=== PATIENT | female | born 1990 | race African-American/Black ===

== ENCOUNTER 2016-11-03 09:16 | Emergency (ER) | payer MEDICAID ==
[~2016-11-03] VITALS: Ht 160 cm; Wt 63.6 kg
[~2016-11-03 09:16] MED LIST: AMOXICILLIN 50500 MG PO; AMOXICILLIN 8751 TAB PO; AMOXICILLIN875 MG PO; CEFTIN 250250 MG/TAB PO; CLEOCIN HCL300 MG PO; DICLEGIS PO; FLEXERIL 1010 MG/TAB PO; MACROBID 1100 MG/CAP PO; MOTRIN 600600 MG/TAB PO; NATURAL IRON65 MG; NORCO 325 MG-51 TAB PO; NORCO 325 MG-7.1 TAB PO; ORAL PAIN REL9.35 GM MM; PEN-VEE K500 MG PO; PHENERGAN 25 TA25 MG PO; PHENERGAN12.5 MG/SU RC; PRENATAL; SLOW FE45 MG PO; ULTRAM 50MG TAB50 MG PO; ZOFRAN 4MG T4 MG/TAB PO
[2016-11-03 09:18] VITALS: BP 106/61; PULSE 96; TEMP 98.8
== END 2016-11-03 10:03 | disposition home or self-care (01) ==
LOC: COL.ER 09:16
DX: S00.83XA Contusion of other part of head, initial encounter (principal); S01.411A Laceration without foreign body of right cheek and temporomandibular area, initial encounter; W01.198A Fall on same level from slipping, tripping and stumbling with subsequent striking against other object, initial encounter; Y92.009 Unspecified place in unspecified non-institutional (private) residence as the place of occurrence of the external cause

== ENCOUNTER 2017-03-25 07:59 | Inpatient (IN) | payer MEDICAID ==
[2017-03-25] VITALS (16 sets, daily range): BP systolic 114–166; BP diastolic 77–101; PULSE 63–90; TEMP 97.6–98.2
[~2017-03-25] VITALS: Ht 157.5 cm; Wt 75.0 kg
[2017-03-25 09:20] LABS: BASO % 0.2 % (0.0-2.0); EOS % 0.3 % (0-4.0); GRAN % 79.6 % (42.2-75.2); LYMPH # 1.6 (1.2-3.4); MEAN CELL VOLUME 81 fl (80.0-100.0); MEAN CORPUSCULAR HGB CONC 32 g/dl (33.0-37.0); MEAN PLATELET VOLUME 12.8 fl (7.4-10.4); MONO # 0.6 (0.1-0.6); MONO % 5.5 % (1.7-9.3); PLATELET COUNT 224 K/mm3 (130-400); RED BLOOD COUNT 4.54 M/mm3 (4.10-5.30); REDCELL DISTRIBUTION WIDTH-CV 13.2 % (11.5-14.5); WHITE BLOOD COUNT 11.3 K/mm3 (4.8-10.8)
[2017-03-25 09:23] LABS: HEMATOCRIT 36.7 % (37.0-47.0); HEMOGLOBIN 11.6 g/dl (12.5-16.0); MEAN CORPUSCULAR HEMOGLOBIN 26 pg (27.0-31.0)
[2017-03-25 09:33] LABS: AMPHETAMINE URINE NEGATIVE; BARBITURATES URINE NEGATIVE; BENZODIAZEPINES URINE NEGATIVE; BUPRENORPHINE URINE NEGATIVE; METHADONE URINE NEGATIVE; OPIATES URINE NEGATIVE; OXYCODONE URINE NEGATIVE; PHENCYCLIDINE URINE NEGATIVE; PROPOXYPHENE URINE NEGATIVE; THC CANNABINOIDS URINE POSITIVE
[2017-03-25 10:22] LABS: UMBILICAL ARTERY ABG PCO2 58.7 mmHg (30-65); UMBILICAL VEIN ABG HCO3 23.2 meq/L (22-28); UMBILICAL VEIN ABG PCO2 45.6 mmHg (30-65); UMBILICAL VEIN ABG PO2 17.8 mmHg; UMBILICAL VEIN ABG pH 7.33 (7.25-7.35)
[2017-03-25 10:27] LABS: UMBILICAL ARTERY ABG pH 7.27 (7.28-7.45)
[2017-03-25 10:28] LABS: UMBILICAL ARTERY ABG PO2 < 10.0 mmHg (50-75)
[2017-03-26 07:15] VITALS: BP 136/90; PULSE 75; TEMP 98.1
[2017-03-26] MEDS ORDERED: IBU800 M1 PO (11:20)
[2017-03-26] MEDS ORDERED: PERCOCET 325 MG1 TA2 PO (11:22)
== END 2017-03-26 13:54 | disposition home or self-care (01) | DRG 774 ==
LOC: LDRO 07:59 → LDR 08:17 → OB 12:53 → LDRO 05-16 14:44
PROVIDERS: Obstetrics & Gynecology
PROC: 10E0XZZ Delivery of Products of Conception, External Approach (ICD-10-PCS; principal; 2017-03-25)
DX: O45.93 Premature separation of placenta, unspecified, third trimester (principal); O99.323 Drug use complicating pregnancy, third trimester; F12.90 Cannabis use, unspecified, uncomplicated; Z3A.38 38 weeks gestation of pregnancy; Z37.0 Single live birth
CPT/HCPCS: J2590; J7120

== ENCOUNTER 2017-10-20 10:58 | Emergency (ER) | payer MEDICAID ==
[~2017-10-20] VITALS: Ht 157.5 cm; Wt 65.9 kg
[~2017-10-20 10:58] MED LIST changes: +IBU800 M1 PO; +PERCOCET 325 MG1 TA2 PO
[2017-10-20 11:00] VITALS: BP 119/77
[2017-10-20 12:15] VITALS: PULSE 99; TEMP 97.7
== END 2017-10-20 12:09 | disposition home or self-care (01) ==
LOC: COL.ER 10:58
DX: S02.2XXA Fracture of nasal bones, initial encounter for closed fracture (principal); F17.210 Nicotine dependence, cigarettes, uncomplicated; Z86.2 Personal history of diseases of the blood and blood-forming organs and certain disorders involving the immune mechanism; Z98.818 Other dental procedure status; W20.8XXA Other cause of strike by thrown, projected or falling object, initial encounter; Y92.009 Unspecified place in unspecified non-institutional (private) residence as the place of occurrence of the external cause

== ENCOUNTER 2017-10-25 12:18 | Emergency (ER) | payer MEDICAID ==
[~2017-10-25] VITALS: Ht 157.5 cm; Wt 65.9 kg
[2017-10-25 12:20] VITALS: BP 123/84; PULSE 90; TEMP 99.1
[2017-10-26] MEDS ORDERED: NORCO 325 MG-51 TAB PO (13:01)
== END 2017-10-25 14:20 | disposition left against medical advice (07) ==
LOC: COL.ER 12:18
DX: J34.89 Other specified disorders of nose and nasal sinuses (principal); Z53.21 Procedure and treatment not carried out due to patient leaving prior to being seen by health care provider

== ENCOUNTER 2017-10-26 10:20 | Emergency (ER) | payer MEDICAID ==
[~2017-10-26] VITALS: Ht 160 cm; Wt 65.9 kg
[2017-10-26 10:30] VITALS: BP 115/66; PULSE 88; TEMP 98.7
[2017-10-26] MEDS ORDERED: NORCO 325 MG-51 TAB PO (13:01)
== END 2017-10-26 13:06 | disposition home or self-care (01) ==
LOC: COL.ER 10:20
DX: S02.2XXD Fracture of nasal bones, subsequent encounter for fracture with routine healing (principal)

== ENCOUNTER 2017-12-02 11:24 | Emergency (ER) | payer MEDICAID ==
[~2017-12-02] VITALS: Ht 160 cm; Wt 65.9 kg
[2017-12-02 11:26] VITALS: BP 120/80; PULSE 93; TEMP 98.2
[2017-12-02] MEDS ORDERED: NORCO 325 MG-51 TAB PO (11:56)
[2017-12-02] MEDS ORDERED: BACTRIM DS 8001 TAB PO (11:56)
== END 2017-12-02 12:02 | disposition home or self-care (01) ==
LOC: COL.ER 11:24
DX: L03.011 Cellulitis of right finger (principal); Z87.891 Personal history of nicotine dependence

== ENCOUNTER 2018-02-21 13:22 | Emergency (ER) | payer MEDICAID ==
[~2018-02-21] VITALS: Ht 160 cm; Wt 65.9 kg
[~2018-02-21 13:22] MED LIST changes: +BACTRIM DS 8001 TAB PO
[2018-02-21 13:24] VITALS: BP 116/55; TEMP 99.1
[2018-02-21] MEDS ORDERED: ULTRAM 50MG TAB50 MG PO (15:10)
[2018-02-21] MEDS ORDERED: AMOXICILLIN 50500 MG PO (15:10)
[2018-02-21 15:37] VITALS: PULSE 104
== END 2018-02-21 15:27 | disposition home or self-care (01) ==
LOC: COL.ER 13:22
DX: S02.609A Fracture of mandible, unspecified, initial encounter for closed fracture (principal); S02.2XXA Fracture of nasal bones, initial encounter for closed fracture; V86.69XA Passenger of other special all-terrain or other off-road motor vehicle injured in nontraffic accident, initial encounter

== ENCOUNTER 2018-03-11 09:48 | Emergency (ER) | payer MEDICAID ==
[~2018-03-11] VITALS: Ht 160 cm; Wt 65.9 kg
[2018-03-11 09:51] VITALS: BP 115/87; TEMP 98.3
[2018-03-11 10:54] VITALS: PULSE 88
== END 2018-03-11 10:55 | disposition home or self-care (01) ==
LOC: COL.ER 09:48
DX: S69.91XA Unspecified injury of right wrist, hand and finger(s), initial encounter (principal); F17.210 Nicotine dependence, cigarettes, uncomplicated; W19.XXXA Unspecified fall, initial encounter; W22.8XXA Striking against or struck by other objects, initial encounter

== ENCOUNTER 2018-03-20 08:47 | Emergency (ER) | payer MEDICAID ==
[~2018-03-20] VITALS: Ht 160 cm; Wt 65.9 kg
[2018-03-20 08:49] VITALS: TEMP 98.2
[2018-03-20 09:19] LABS: COLLECTION METHOD CLEAN CATCH
[2018-03-20 09:37] LABS: MUCOUS Present /lpf; PH 6 (5-8); URINE APPEARANCE Hazy; URINE BACTERIA None Seen /hpf; URINE BILIRUBIN Negative (NEGATIVE); URINE BLOOD 2+ (NEGATIVE); URINE COLOR Yellow; URINE GLUCOSE Negative (NEGATIVE); URINE KETONE Trace (NEGATIVE); URINE LEUKOCYTE ESTERASE Negative (NEGATIVE); URINE NITRATE Negative (NEGATIVE); URINE PROTEIN(semi-quant) 1+ (NEGATIVE); URINE RBC >50 /hpf; URINE UROBILINOGEN Negative (NEGATIVE)
[2018-03-20 09:46] LABS: BASO % 0.2 % (0.0-2.0); EOS # 0.1 (0.0-0.7); EOS % 0.9 % (0-4.0); GRAN # 4.5 (1.4-6.5); GRAN % 71.1 % (42.2-75.2); HEMOGLOBIN 11.2 g/dl (12.5-16.0); LYMPH # 1.4 (1.2-3.4); MEAN CELL VOLUME 86 fl (80.0-100.0); MEAN CORPUSCULAR HEMOGLOBIN 27 pg (27.0-31.0); MEAN CORPUSCULAR HGB CONC 31 g/dl (33.0-37.0); MEAN PLATELET VOLUME 9.7 fl (7.4-10.4); MONO # 0.4 (0.1-0.6); MONO % 5.5 % (1.7-9.3); PLATELET COUNT 402 K/mm3 (130-400); RED BLOOD COUNT 4.16 M/mm3 (4.10-5.30); REDCELL DISTRIBUTION WIDTH-CV 13.8 % (11.5-14.5)
[2018-03-20 09:52] LABS: HEMATOCRIT 35.9 % (37.0-47.0)
[2018-03-20 09:54] LABS: ALBUMIN 3.9 gm/dL (3.5-5.0); BILIRUBIN,TOTAL 0.5 mg/dL (0.0-1.0); CALCIUM 9.2 mg/dL (8.4-10.2); CREATININE, serum 0.7 mg/dL (0.52-1.25); POTASSIUM 3.8 mmol/L (3.4-5.0); TOTAL PROTEIN 7.1 gm/dL (6.4-8.2)
[2018-03-20 12:32] VITALS: BP 122/70; PULSE 86
== END 2018-03-20 12:32 | disposition home or self-care (01) ==
LOC: COL.ER 08:47
PROVIDERS: Nurse Practitioner
DX: O46.91 Antepartum hemorrhage, unspecified, first trimester (principal); O99.321 Drug use complicating pregnancy, first trimester; F12.90 Cannabis use, unspecified, uncomplicated; Z3A.00 Weeks of gestation of pregnancy not specified; Z87.891 Personal history of nicotine dependence; Z98.818 Other dental procedure status

== ENCOUNTER 2018-03-23 08:46 | Emergency (ER) | payer MEDICAID ==
[~2018-03-23] VITALS: Ht 160 cm; Wt 62.5 kg
[2018-03-23 09:01] VITALS: TEMP 98.1
[2018-03-23 09:38] LABS: BASO % 0.1 % (0.0-2.0); EOS # 0.1 (0.0-0.7); EOS % 0.9 % (0-4.0); GRAN # 8.4 (1.4-6.5); GRAN % 80.3 % (42.2-75.2); HEMOGLOBIN 11.2 g/dl (12.5-16.0); LYMPH # 1.3 (1.2-3.4); MEAN CELL VOLUME 85 fl (80.0-100.0); MEAN CORPUSCULAR HEMOGLOBIN 27 pg (27.0-31.0); MEAN CORPUSCULAR HGB CONC 32 g/dl (33.0-37.0); MEAN PLATELET VOLUME 9.4 fl (7.4-10.4); MONO # 0.7 (0.1-0.6); MONO % 6.3 % (1.7-9.3); PLATELET COUNT 383 K/mm3 (130-400); REDCELL DISTRIBUTION WIDTH-CV 13.9 % (11.5-14.5)
[2018-03-23 09:40] LABS: HEMATOCRIT 34.9 % (37.0-47.0)
[2018-03-23 10:02] VITALS: BP 121/82
[2018-03-23] MEDS ORDERED: NORCO 325 MG-51 TAB PO (10:18)
[2018-03-23 10:43] VITALS: PULSE 88
== END 2018-03-23 10:44 | disposition home or self-care (01) ==
LOC: COL.ER 08:46
PROVIDERS: Family Medicine
DX: O03.9 Complete or unspecified spontaneous abortion without complication (principal)

== ENCOUNTER 2018-04-08 20:16 | Emergency (ER) | payer MEDICAID ==
[~2018-04-08] VITALS: Ht 160 cm; Wt 62.3 kg
[2018-04-08 20:19] VITALS: BP 110/63; PULSE 93; TEMP 98.3
== END 2018-04-08 22:07 | disposition home or self-care (01) ==
LOC: COL.ER 20:16
DX: S69.91XA Unspecified injury of right wrist, hand and finger(s), initial encounter (principal); V86.99XA Unspecified occupant of other special all-terrain or other off-road motor vehicle injured in nontraffic accident, initial encounter
CPT/HCPCS: J1885

== ENCOUNTER 2018-05-22 09:46 | Emergency (ER) | payer MEDICAID ==
[~2018-05-22] VITALS: Ht 160 cm; Wt 60.0 kg
[2018-05-22 09:48] VITALS: TEMP 98.6
[2018-05-22 11:27] VITALS: BP 124/82; PULSE 98
== END 2018-05-22 11:28 | disposition home or self-care (01) ==
LOC: COL.ER 09:46
DX: S01.511A Laceration without foreign body of lip, initial encounter (principal); W20.8XXA Other cause of strike by thrown, projected or falling object, initial encounter; Y92.009 Unspecified place in unspecified non-institutional (private) residence as the place of occurrence of the external cause

== ENCOUNTER 2018-05-25 11:27 | Emergency (ER) | payer MEDICAID ==
[~2018-05-25] VITALS: Ht 160 cm; Wt 60.0 kg
[2018-05-25 11:32] VITALS: BP 121/70; PULSE 94; TEMP 98.8
[2018-05-25] MEDS ORDERED: AMOXICILLIN 50500 MG PO (12:48)
== END 2018-05-25 12:49 | disposition other institution (70) ==
LOC: COL.ER 11:27
DX: S06.0X0A Concussion without loss of consciousness, initial encounter (principal); W22.8XXA Striking against or struck by other objects, initial encounter; Y92.009 Unspecified place in unspecified non-institutional (private) residence as the place of occurrence of the external cause

== ENCOUNTER 2018-06-22 11:19 | Emergency (ER) | payer MEDICAID ==
[~2018-06-22] VITALS: Ht 160 cm; Wt 60.0 kg
[2018-06-22 11:25] VITALS: BP 116/76; TEMP 99.1
[2018-06-22] MEDS ORDERED: MOTRIN 800800 MG/TAB PO (12:37)
[2018-06-22 12:54] VITALS: PULSE 99
== END 2018-06-22 12:54 | disposition home or self-care (01) ==
LOC: COL.ER 11:19
DX: S09.90XA Unspecified injury of head, initial encounter (principal); S01.91XA Laceration without foreign body of unspecified part of head, initial encounter; F17.210 Nicotine dependence, cigarettes, uncomplicated; W22.09XA Striking against other stationary object, initial encounter; Y92.009 Unspecified place in unspecified non-institutional (private) residence as the place of occurrence of the external cause

== ENCOUNTER 2018-07-04 10:12 | Emergency (ER) | payer MEDICAID ==
[~2018-07-04] VITALS: Ht 160 cm; Wt 60.5 kg
[~2018-07-04 10:12] MED LIST changes: +MOTRIN 800800 MG/TAB PO
[2018-07-04 10:19] VITALS: BP 108/59; TEMP 98.7
[2018-07-04] MEDS ORDERED: PRENATAL MVI PO (10:58)
[2018-07-04 11:04] VITALS: PULSE 80
== END 2018-07-04 11:08 | disposition home or self-care (01) ==
LOC: COL.ER 10:12
DX: O21.9 Vomiting of pregnancy, unspecified (principal); Z3A.00 Weeks of gestation of pregnancy not specified

== ENCOUNTER 2018-07-05 11:17 | Emergency (ER) | payer MEDICAID ==
[~2018-07-05] VITALS: Ht 160 cm; Wt 60.5 kg
[~2018-07-05 11:17] MED LIST changes: +PRENATAL MVI PO
[2018-07-05 11:20] VITALS: BP 113/75; TEMP 98.9
[2018-07-05 11:48] LABS: COLLECTION METHOD CLEAN CATCH
[2018-07-05 11:56] LABS: MUCOUS Present /lpf; PH 7 (5-8); SQUAMOUS EPITHELIAL 0-2 /hpf; URINE APPEARANCE Clear; URINE BACTERIA None Seen /hpf; URINE BILIRUBIN Negative (NEGATIVE); URINE BLOOD Negative (NEGATIVE); URINE COLOR Yellow; URINE GLUCOSE Negative (NEGATIVE); URINE KETONE Negative (NEGATIVE); URINE LEUKOCYTE ESTERASE Negative (NEGATIVE); URINE NITRATE Negative (NEGATIVE); URINE PROTEIN(semi-quant) Negative (NEGATIVE); URINE RBC 0-2 /hpf; URINE UROBILINOGEN Negative (NEGATIVE)
[2018-07-05 12:00] VITALS: PULSE 75
== END 2018-07-05 12:10 | disposition home or self-care (01) ==
LOC: COL.ER 11:17
PROVIDERS: Physician Assistant
DX: O21.9 Vomiting of pregnancy, unspecified (principal); Z3A.00 Weeks of gestation of pregnancy not specified

== ENCOUNTER 2018-10-02 15:47 | Inpatient (IN) | payer OTHER ==
[~2018-10-02] VITALS: Ht 160 cm; Wt 60.9 kg
[2018-10-02 16:23] LABS: COLLECTION METHOD CLEAN CATCH
[2018-10-02 16:30] LABS: MUCOUS Present /lpf; PH 6 (5-8); SQUAMOUS EPITHELIAL 0-2 /hpf; URINE APPEARANCE Clear; URINE BACTERIA None Seen /hpf; URINE BILIRUBIN Negative (NEGATIVE); URINE BLOOD Negative (NEGATIVE); URINE COLOR Yellow; URINE GLUCOSE Negative (NEGATIVE); URINE KETONE Negative (NEGATIVE); URINE LEUKOCYTE ESTERASE Negative (NEGATIVE); URINE NITRATE Negative (NEGATIVE); URINE PROTEIN(semi-quant) Negative (NEGATIVE); URINE RBC 0-2 /hpf; URINE UROBILINOGEN Negative (NEGATIVE)
[2018-10-02 17:33] LABS: BASO % 0.1 % (0.0-2.0); EOS # 0.1 (0.0-0.7); EOS % 0.8 % (0-4.0); GRAN # 6.9 (1.4-6.5); HEMOGLOBIN 10.7 g/dl (12.5-16.0); LYMPH # 2.2 (1.2-3.4); LYMPH % 22.3 % (20.0-51.0); MEAN CELL VOLUME 88 fl (80.0-100.0); MEAN CORPUSCULAR HEMOGLOBIN 28 pg (27.0-31.0); MEAN CORPUSCULAR HGB CONC 32 g/dl (33.0-37.0); MEAN PLATELET VOLUME 9.3 fl (7.4-10.4); MONO # 0.6 (0.1-0.6); MONO % 6.4 % (1.7-9.3); PLATELET COUNT 394 K/mm3 (130-400); RED BLOOD COUNT 3.84 M/mm3 (4.10-5.30); REDCELL DISTRIBUTION WIDTH-CV 13.7 % (11.5-14.5)
[2018-10-02 17:34] LABS: HEMATOCRIT 33.7 % (37.0-47.0)
[2018-10-02 17:47] LABS: ALANINE AMINOTRANSFERASE 13 U/L (9-52); ALBUMIN 3.4 gm/dL (3.5-5.0); ALKALINE PHOSPHATASE 46 U/L (50-136); ANION GAP 3 mmol/L (7-16); AST,SGOT 14 U/L (15-37); BILIRUBIN,TOTAL < 0.1 mg/dL (0.0-1.0); BLOOD UREA NITROGEN 8 mg/dL (7-17); CALCIUM 8.8 mg/dL (8.4-10.2); CARBON DIOXIDE 27 mmol/L (22-30); CHLORIDE 110 mmol/L (98-107); CREATININE, serum 0.51 mg/dL (0.52-1.25); GLUCOSE 60 mg/dL (74-106); POTASSIUM 3.5 mmol/L (3.4-5.0); SODIUM 141 mmol/L (137-145); TOTAL PROTEIN 6.3 gm/dL (6.4-8.2)
[2018-10-02 18:03] LABS: HCG,QUANTITATIVE 913 mIU/mL (0-5)
[2018-10-02 19:56] LABS: TRICYCLIC ANTIDEPRESS URINE NEGATIVE
--- NOTE | 2018-10-02 20:31 | NUR ---
Pt arrives to unit by wheelchair accompanied by L&D staff. Pt oriented to room call light within reach, bed in low and locked position. Plan of care discussed with patient. Vital signs obtained. Admission assessment started.
[2018-10-02 20:35] VITALS: BP 103/77; PULSE 87; TEMP 98.3
--- NOTE | 2018-10-02 20:45 | NUR ---
Per verbal orders from Dr. Moya, pt ok to eat before placing first dose of cytotec if patient desires. Pt stating she is hungry and would like to eat. Offered sandwich box from unit fridge.
[2018-10-02 21:33] VITALS: BP 98/62; PULSE 83
--- NOTE | 2018-10-02 21:33 | NUR ---
Procedure consents reviewed with patient. Pt states that she is feeling some mild cramping. 100 mcg of cytotec placed vaginally at this time. Cervix closed/thick/high. Pt instructed to lay in a flat lateral position for 1 hour after placement and then is able to move however she is comfortable.
[2018-10-02 22:00] VITALS: BP 97/59; PULSE 84
[2018-10-02 22:30] VITALS: BP 118/73; PULSE 86
--- NOTE | 2018-10-02 22:45 | NUR ---
Pt states cramping is still there by manageable. Pt instructed that she is able to get up and go to the bathroom if she wants at this time. Pt with no further questions.
[2018-10-02 23:00] VITALS: BP 103/60; PULSE 78
[2018-10-03] VITALS (26 sets, daily range): BP systolic 92–133; BP diastolic 51–90; PULSE 60–96; TEMP 98.1
--- NOTE | 2018-10-03 | NUR ---
Upon entering room patient appears to be sleeping comfortably.
--- NOTE | 2018-10-03 01:30 | NUR ---
Second dose of 100 mcg cytotec placed vaginally at this time. Pt instructed to remain in bed in a flat and lateral position for one hour after insertion. Cervix 10/26/-2. Pt denies needs or questions at this time.
--- NOTE | 2018-10-03 02:00 | NUR ---
RN in bathroom to empty hat. 100 ml of brown fluid noted to be in hat and urine in toilet.
--- NOTE | 2018-10-03 02:45 | NUR ---
Upon entering room patient appears to be sleeping comfortably. Left undisturbed.
--- NOTE | 2018-10-03 04:00 | NUR ---
Upon entering room patient appears to be sleeping comfortably. Left undisturbed.
--- NOTE | 2018-10-03 04:45 | NUR ---
RN at bedside. Plan of care discussed. Pt denies any loss of fluid but states she feels that cramping is getting more intense. Denies the need for interventions for pain.
--- NOTE | 2018-10-03 05:35 | NUR ---
Pt up to bathroom to void prior to placement of cytotec. Upon returned to bed patient states that there was some blood in the hat. 200 ml bloody urine noted. Pt then positioned in bed for cervical exam. During cervical exam a limb was noted to be coming through cervical opening and cervix is 2/50/-1. Pt states pain is getting worse. Updated patient on cervical exam and Dr. Moya notified.
--- NOTE | 2018-10-03 05:45 | NUR ---
Third dose of cytotec placed in vagina at this time. Blood stained fluid noted on glove and under patients bottom. Pt instructed to stay in bed in a flat position for 1 hour after placement. Pt requesting pain medication at this time, see MAR.
[2018-10-03] MEDS ORDERED: IBU800 M1 PO (14:38)
[2018-10-03] MEDS ORDERED: PERCOCET 325 MG1 TA2 PO (14:38)
--- NOTE | 2018-10-03 18:27 | NUR ---
PATIENT DISCHARGED, AND ESCORTED OFF THE UNIT BY NURSING STAFF. PATIENT UNDERSTOOD DISCHARGE EDUCAITON , DENIES QUESITIONS OR CONCERNS
[2018-10-04 13:33] LABS: LUPUS ANTICOAGULANT PT 10.5 sec (())
[2018-10-04 19:42] LABS: BETA-2 GPI IGG AABS <9.4 U/mL (()); BETA-2 GPI IGM AABS <9.4 U/mL (())
== END 2018-10-03 18:10 | disposition home or self-care (01) | DRG 806 ==
LOC: COL.ER 15:47 → LDR 19:42
PROVIDERS: Emergency Medicine; Nurse Practitioner; Obstetrics & Gynecology; ADMIT Student in an Organized Health Care Education/Training Program
PROC: 3E0P7VZ Introduction of Hormone into Female Reproductive, Via Natural or Artificial Opening (ICD-10-PCS; 2018-10-02)
PROC: 10E0XZZ Delivery of Products of Conception, External Approach (ICD-10-PCS; principal; 2018-10-03)
DX: O02.1 Missed abortion (principal); O99.322 Drug use complicating pregnancy, second trimester; Z37.1 Single stillbirth; Z3A.19 19 weeks gestation of pregnancy; F12.10 Cannabis abuse, uncomplicated
CPT/HCPCS: J2270; J2590; J7120

== ENCOUNTER 2018-10-08 05:53 | Emergency (ER) | payer OTHER ==
[~2018-10-08] VITALS: Ht 160 cm; Wt 60.9 kg
[2018-10-08 05:57] VITALS: TEMP 98.7
[2018-10-08 06:29] LABS: BASO % 0.1 % (0.0-2.0); EOS # 0.1 (0.0-0.7); EOS % 1.5 % (0-4.0); GRAN # 5.5 (1.4-6.5); GRAN % 73.1 % (42.2-75.2); HEMOGLOBIN 11.1 g/dl (12.5-16.0); LYMPH # 1.4 (1.2-3.4); MEAN CELL VOLUME 90 fl (80.0-100.0); MEAN CORPUSCULAR HEMOGLOBIN 28 pg (27.0-31.0); MEAN CORPUSCULAR HGB CONC 31 g/dl (33.0-37.0); MEAN PLATELET VOLUME 9.4 fl (7.4-10.4); MONO # 0.4 (0.1-0.6); MONO % 5.6 % (1.7-9.3); PLATELET COUNT 356 K/mm3 (130-400); RED BLOOD COUNT 3.97 M/mm3 (4.10-5.30); REDCELL DISTRIBUTION WIDTH-CV 13.6 % (11.5-14.5)
[2018-10-08 06:33] LABS: HEMATOCRIT 35.8 % (37.0-47.0)
[2018-10-08 06:44] LABS: ALANINE AMINOTRANSFERASE 14 U/L (9-52); ALBUMIN 3.2 gm/dL (3.5-5.0); ALKALINE PHOSPHATASE 49 U/L (50-136); ANION GAP 4 mmol/L (7-16); AST,SGOT 16 U/L (15-37); BILIRUBIN,TOTAL 0.1 mg/dL (0.0-1.0); BLOOD UREA NITROGEN 7 mg/dL (7-17); CALCIUM 8.8 mg/dL (8.4-10.2); CARBON DIOXIDE 25 mmol/L (22-30); CHLORIDE 111 mmol/L (98-107); CREATININE, serum 0.63 mg/dL (0.52-1.25); GLUCOSE 80 mg/dL (74-106); POTASSIUM 3.9 mmol/L (3.4-5.0); SODIUM 140 mmol/L (137-145)
[2018-10-08 06:53] LABS: C-REACTIVE PROTEIN < 0.5 mg/dL (0.0-0.9)
[2018-10-08 08:36] LABS: COLLECTION METHOD CLEAN CATCH
[2018-10-08 08:47] LABS: MUCOUS Present /lpf; PH 6 (5-8); SQUAMOUS EPITHELIAL 0-2 /hpf; URINE APPEARANCE Clear; URINE BACTERIA None Seen /hpf; URINE BILIRUBIN Negative (NEGATIVE); URINE BLOOD 1+ (NEGATIVE); URINE COLOR Yellow; URINE GLUCOSE Negative (NEGATIVE); URINE KETONE Negative (NEGATIVE); URINE LEUKOCYTE ESTERASE Negative (NEGATIVE); URINE NITRATE Negative (NEGATIVE); URINE PROTEIN(semi-quant) Negative (NEGATIVE); URINE RBC 0-2 /hpf; URINE UROBILINOGEN Negative (NEGATIVE)
[2018-10-08] MEDS ORDERED: PERCOCET 325 MG1 TA2 PO (09:22)
[2018-10-08 11:06] VITALS: BP 110/67; PULSE 82
== END 2018-10-08 11:06 | disposition home or self-care (01) ==
LOC: COL.ER 05:53
PROVIDERS: Emergency Medicine
DX: R10.9 Unspecified abdominal pain (principal)
CPT/HCPCS: J1170; J7030

== ENCOUNTER 2018-11-09 11:20 | Emergency (ER) | payer MEDICAID ==
[~2018-11-09] VITALS: Ht 160 cm; Wt 63.6 kg
[2018-11-09 11:28] VITALS: BP 118/68; TEMP 99
[2018-11-09] MEDS ORDERED: AMOXICILLIN 50500 MG PO (11:57)
[2018-11-09 12:13] VITALS: PULSE 98
== END 2018-11-09 12:23 | disposition home or self-care (01) ==
LOC: COL.ER 11:20
DX: R68.84 Jaw pain (principal); F17.210 Nicotine dependence, cigarettes, uncomplicated

== ENCOUNTER 2018-11-18 07:23 | Emergency (ER) | payer MEDICAID ==
[~2018-11-18] VITALS: Ht 160 cm; Wt 60.9 kg
[2018-11-18 07:29] VITALS: BP 114/79; TEMP 98.7
[2018-11-18] MEDS ORDERED: IBU800 M1 PO (07:55)
[2018-11-18] MEDS ORDERED: NORCO 325 MG-51 TAB PO (08:23)
[2018-11-18 08:54] VITALS: PULSE 73
== END 2018-11-18 08:54 | disposition home or self-care (01) ==
LOC: COL.ER 07:23
DX: M26.601 Right temporomandibular joint disorder, unspecified (principal); Z87.891 Personal history of nicotine dependence
CPT/HCPCS: J1885

== ENCOUNTER 2018-11-21 17:29 | Emergency (ER) | payer MEDICAID ==
[~2018-11-21] VITALS: Ht 160 cm; Wt 60.9 kg
[2018-11-21 17:33] VITALS: BP 115/77; PULSE 82
[2018-11-21] MEDS ORDERED: SPRINTEC 35 MCG1 TAB PO (17:41)
[2018-11-21] MEDS ORDERED: FLEXERIL 1010 MG/TAB PO (18:03)
[2018-11-21 18:08] VITALS: TEMP 98.7
== END 2018-11-21 18:10 | disposition home or self-care (01) ==
LOC: COL.ER 17:29
DX: M26.601 Right temporomandibular joint disorder, unspecified (principal); F17.210 Nicotine dependence, cigarettes, uncomplicated

== ENCOUNTER 2018-11-26 11:01 | Emergency (ER) | payer MEDICAID ==
[~2018-11-26] VITALS: Ht 160 cm; Wt 60.9 kg
[~2018-11-26 11:01] MED LIST changes: +SPRINTEC 35 MCG1 TAB PO
[2018-11-26 11:09] VITALS: TEMP 98.9
[2018-11-26] MEDS ORDERED: NORCO 325 MG-51 TAB PO (13:18)
[2018-11-26] MEDS ORDERED: AMOXICILLIN 50500 MG PO (13:18)
[2018-11-26 13:30] VITALS: BP 120/76; PULSE 78
== END 2018-11-26 13:31 | disposition home or self-care (01) ==
LOC: COL.ER 11:01
DX: S02.609A Fracture of mandible, unspecified, initial encounter for closed fracture (principal); F17.210 Nicotine dependence, cigarettes, uncomplicated; Y04.0XXA Assault by unarmed brawl or fight, initial encounter

== ENCOUNTER 2018-12-09 07:35 | Emergency (ER) | payer MEDICAID ==
[~2018-12-09] VITALS: Ht 160 cm; Wt 60.9 kg
[2018-12-09 07:40] VITALS: BP 108/72
[2018-12-09 08:45] VITALS: PULSE 82; TEMP 98.5
== END 2018-12-09 08:45 | disposition home or self-care (01) ==
LOC: COL.ER 07:35
DX: S30.810A Abrasion of lower back and pelvis, initial encounter (principal); S22.42XD Multiple fractures of ribs, left side, subsequent encounter for fracture with routine healing; W10.9XXA Fall (on) (from) unspecified stairs and steps, initial encounter; Y92.009 Unspecified place in unspecified non-institutional (private) residence as the place of occurrence of the external cause
CPT/HCPCS: A9284

== ENCOUNTER 2018-12-25 08:21 | Emergency (ER) | payer MEDICAID ==
[~2018-12-25] VITALS: Ht 160 cm; Wt 60.9 kg
[2018-12-25 08:30] VITALS: TEMP 97.7
[2018-12-25 09:40] VITALS: BP 110/76; PULSE 96
== END 2018-12-25 09:41 | disposition home or self-care (01) ==
LOC: COL.ER 08:21
DX: S93.402A Sprain of unspecified ligament of left ankle, initial encounter (principal); S93.602A Unspecified sprain of left foot, initial encounter; F17.210 Nicotine dependence, cigarettes, uncomplicated; W20.8XXA Other cause of strike by thrown, projected or falling object, initial encounter; Y92.009 Unspecified place in unspecified non-institutional (private) residence as the place of occurrence of the external cause

== ENCOUNTER 2018-12-27 10:40 | Emergency (ER) | payer MEDICAID ==
[~2018-12-27] VITALS: Ht 160 cm; Wt 57.5 kg
[2018-12-27 10:51] VITALS: BP 123/69; TEMP 98.8
[2018-12-27] MEDS ORDERED: CRUTCHES MC (12:27)
[2018-12-27] MEDS ORDERED: NORCO 325 MG-51 TAB PO (12:27)
[2018-12-27 12:37] VITALS: PULSE 74
== END 2018-12-27 12:38 | disposition home or self-care (01) ==
LOC: COL.ER 10:40
DX: S93.402A Sprain of unspecified ligament of left ankle, initial encounter (principal); F12.90 Cannabis use, unspecified, uncomplicated; W20.8XXA Other cause of strike by thrown, projected or falling object, initial encounter; Y92.009 Unspecified place in unspecified non-institutional (private) residence as the place of occurrence of the external cause

== ENCOUNTER 2019-01-10 12:14 | Emergency (ER) | payer MEDICAID ==
[~2019-01-10] VITALS: Ht 157.5 cm; Wt 57.3 kg
[~2019-01-10 12:14] MED LIST changes: +CRUTCHES MC
[2019-01-10 13:14] LABS: BASO % 0.1 % (0.0-2.0); GRAN # 18.4 (1.4-6.5); GRAN % 89.5 % (42.2-75.2); HEMATOCRIT 37.2 % (37.0-47.0); HEMOGLOBIN 11.4 g/dl (12.5-16.0); LYMPH # 0.8 (1.2-3.4); LYMPH % 3.9 % (20.0-51.0); MEAN CELL VOLUME 88 fl (80.0-100.0); MEAN CORPUSCULAR HEMOGLOBIN 27 pg (27.0-31.0); MEAN CORPUSCULAR HGB CONC 31 g/dl (33.0-37.0); MEAN PLATELET VOLUME 9.6 fl (7.4-10.4); MONO # 1.2 (0.1-0.6); PLATELET COUNT 507 K/mm3 (130-400); RED BLOOD COUNT 4.25 M/mm3 (4.10-5.30); REDCELL DISTRIBUTION WIDTH-CV 13.2 % (11.5-14.5)
[2019-01-10 13:23] LABS: ALANINE AMINOTRANSFERASE 55 U/L (9-52); ALBUMIN 4.1 gm/dL (3.5-5.0); ALCOHOL(ethanol),MEDICAL < 10 mg/dL; ALKALINE PHOSPHATASE 86 U/L (50-136); ANION GAP 9 mmol/L (7-16); AST,SGOT 68 U/L (15-37); BILIRUBIN,TOTAL 0.5 mg/dL (0.0-1.0); BLOOD UREA NITROGEN 10 mg/dL (7-17); CALCIUM 9.3 mg/dL (8.4-10.2); CARBON DIOXIDE 26 mmol/L (22-30); CHLORIDE 105 mmol/L (98-107); CREATININE, serum 0.84 (0.52-1.25); GLUCOSE 133 mg/dL (74-106); POTASSIUM 3.5 mmol/L (3.4-5.0); SODIUM 140 mmol/L (137-145); TOTAL PROTEIN 7.3 gm/dL (6.4-8.2)
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
--- NOTE | 2019-01-10 16:53 | NUR ---
SW made a CPS Report. Intake ID#[id number]
[2019-01-10 17:08] VITALS: BP 118/91; PULSE 113; TEMP 98
== END 2019-01-10 17:10 | disposition short-term general hospital (02) ==
LOC: COL.ER 12:14
PROVIDERS: Family Medicine
DX: S06.0X9A Concussion with loss of consciousness of unspecified duration, initial encounter (principal); S06.5X9A Traumatic subdural hemorrhage with loss of consciousness of unspecified duration, initial encounter; W10.9XXA Fall (on) (from) unspecified stairs and steps, initial encounter
CPT/HCPCS: J2270

== ENCOUNTER 2019-01-17 10:39 | Emergency (ER) | payer MEDICAID ==
[~2019-01-17] VITALS: Ht 157.5 cm; Wt 57.7 kg
[2019-01-17 10:50] VITALS: TEMP 99.9
[2019-01-17] MEDS ORDERED: ZOFRAN ODT8 MG PO (11:16)
[2019-01-17] MEDS ORDERED: NORCO 325 MG-51 TAB PO (11:16)
[2019-01-17] MEDS ORDERED: KEPPRA 500MG500 MG PO (11:33)
[2019-01-17 12:06] VITALS: BP 105/76; PULSE 70
== END 2019-01-17 12:07 | disposition home or self-care (01) ==
LOC: COL.ER 10:39
DX: F07.81 Postconcussional syndrome (principal); Z87.81 Personal history of (healed) traumatic fracture; Z87.891 Personal history of nicotine dependence

== ENCOUNTER 2019-04-24 07:59 | Emergency (ER) | payer MEDICAID ==
[~2019-04-24] VITALS: Ht 152.4 cm; Wt 52.5 kg
[~2019-04-24 07:59] MED LIST changes: +KEPPRA 500MG500 MG PO; +ZOFRAN ODT8 MG PO
[2019-04-24 08:06] VITALS: BP 110/80; PULSE 102; TEMP 97.5
[2019-04-24] MEDS ORDERED: ZOFRAN ODT4 MG PO (08:39)
== END 2019-04-24 09:04 | disposition home or self-care (01) ==
LOC: COL.ER 07:59
DX: R11.2 Nausea with vomiting, unspecified (principal)

== ENCOUNTER 2019-06-29 08:13 | Emergency (ER) | payer MEDICAID ==
[~2019-06-29] VITALS: Ht 157.5 cm; Wt 54.5 kg
[~2019-06-29 08:13] MED LIST changes: +ZOFRAN ODT4 MG PO
[2019-06-29 08:19] VITALS: BP 103/64; TEMP 99.2
[2019-06-29] MEDS ORDERED: ANUSOL-HC SUPPO25 MG RC (08:46)
[2019-06-29 09:12] VITALS: PULSE 78
== END 2019-06-29 09:19 | disposition home or self-care (01) ==
LOC: COL.ER 08:13
DX: K64.4 Residual hemorrhoidal skin tags (principal); D64.9 Anemia, unspecified; Z87.891 Personal history of nicotine dependence; Z98.890 Other specified postprocedural states
CPT/HCPCS: J1885

== ENCOUNTER 2020-05-04 00:42 | Emergency (ER) | payer MEDICAID ==
[~2020-05-04] VITALS: Ht 157.5 cm; Wt 65.9 kg
[~2020-05-04 00:42] MED LIST changes: +ANUSOL-HC SUPPO25 MG RC
[2020-05-04 00:54] VITALS: BP 99/69; TEMP 97.9
[2020-05-04] MEDS ORDERED: ANUSOL HC CREAM30 GM TP (01:11)
[2020-05-04 01:18] VITALS: PULSE 73
== END 2020-05-04 01:18 | disposition home or self-care (01) ==
LOC: COL.ER 00:42
DX: K64.4 Residual hemorrhoidal skin tags (principal); F17.210 Nicotine dependence, cigarettes, uncomplicated

== ENCOUNTER 2020-11-18 00:03 | Outpatient (CLI) | payer MEDICAID ==
[~2020-11-18] VITALS: Ht 160 cm; Wt 76.4 kg
[2020-11-18] VITALS (10 sets, daily range): BP systolic 93–135; BP diastolic 52–76; PULSE 74–96; TEMP 97.5–98.6
[~2020-11-18 00:03] MED LIST changes: +ANUSOL HC CREAM30 GM TP
--- NOTE | 2020-11-18 00:10 | NUR ---
G6L3. 34-0. Ambulatory to LDR 4 with significant other. Clean gown on. EFM and TOCO explained and applied. Pt states she is here with pelvic pain and pressure. Pt also reports emesis this afternoon at 1400. Pt states for the last couple of weeks she has been throwing up 2-3 times a day. Pt reports the pain being come and go but is unsure if it is contractions due to not really feeling contractions with her last labors/pregnancies. Pt denies leaking of fluids or vaginal bleeding. Reports good movement. Plan of care explained. SVE FT/thick/-3. Plan of care explained. 0120: SVE completed. Unchanged but more midposition. Pt reports pain being the same as when she got to the hospital. Denies getting worse. 0130: called and updated on pts status. 0139: Pt took self off monitors to use restroom. 0155: Plan of care explained to pt. Pt verbalizes understanding. Pt reports pain worsening since getting up to use restroom. IV started and LR bolus infusing without difficulties. 0205: Pt reports pain getting better since laying down in bed for awhile. call light within reach.
--- NOTE | 2020-11-18 03:18 | NUR ---
Pt reports her contractions still being painful despite having a liter of fluids. Pt reports contractions worse then when she got to the hospital still. Plan of care explained. 0321: updated on pts status. See physican notification. Plan of care explained to pt and pt verbalizes her understanding. Denies quesitons at this time.
--- NOTE | 2020-11-18 06:30 | NUR ---
This RN receives bedside report from Imer CARLOS. Patient resting in bed and states the contractions are about the same and still can feel them. 0705: SVE Dr. Moya called and updated and discharge orders received. 0720: IV discontinued and patient tolerates well. Patient given discharge orders and agrees with plan of care. 0730: Patient ambulatory off unit with significant other.
== END 2020-11-18 07:30 | disposition home or self-care (01) ==
LOC: LDRO 00:03 → LDR 00:03 → LDRO 00:19 → LDR 00:19 → LDRO 07:30 → LDR 07:30
DX: O26.893 Other specified pregnancy related conditions, third trimester (principal); R10.2 Pelvic and perineal pain; Z3A.34 34 weeks gestation of pregnancy
CPT/HCPCS: OP; J7120

== ENCOUNTER 2020-12-05 18:16 | Observation (INO) | payer MEDICAID ==
[2020-12-05] VITALS (11 sets, daily range): BP systolic 83–104; BP diastolic 52–76; PULSE 73–118; TEMP 98.1–98.3
[~2020-12-05] VITALS: Ht 157.5 cm; Wt 76.4 kg
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
[2020-12-05] MEDS ORDERED: ZOFRAN ODT4 MG PO (18:45)
--- NOTE | 2020-12-05 18:45 | NUR ---
Ice water and kobe crackers given to patient to PO challenge. RN at bedside through some contractions, pt appears to be unaware when they happen and appears to be in no distress but does state that she is in so much pain.
--- NOTE | 2020-12-05 19:20 | NUR ---
20G IV started in right forearm. Lactated Ringers bolus infusing to gravity.
--- NOTE | 2020-12-05 20:15 | NUR ---
Pt has been able to keep water and crackers down with vomiting, reviewing discharge plans at this time, pt and teofiloance agreeable to plan. 2020 - Upon arrival back in room, pt had episode of emesis and states she is still in much pain in her abdomen.
--- NOTE | 2020-12-05 20:52 | NUR ---
This RN sitting at nurses station and heard yelling coming from patients room. FOB is heard saying "F you b, if you are going to talk to me like that", patient responds by just continuing to say "bye". This nurse into room and pt and FOB state everything is fine. I tell patient that if she wants him to leave, then he will have to leave as that is her right. Pt states "he's fine". About 30 minutes later, another incidient was overheard and FOB was seen leaving the room and unit. Checked in with patient, states she is ok. Asked if she will have a ride once she is discharged and she states her sister will come and get her. This nurse asked patient if she would be going home to him when discharged and she states "no, I will be with my sister". Pt does not appear to be concerned but this nurse still has concern for patients safety. Spoke with Suman, tank house operator, who states if patient has a safe discharge plan for the night then ok to discharge and place a social service consult to follow up with patient.
--- NOTE | 2020-12-05 21:45 | NUR ---
RN to bedside. Informed patient that a social service consult would be placed and they will follow up with her. Pt states that everything is fine and she is going home with her sister, states that it was mainly her saying things to make him mad, so he left.
--- NOTE | 2020-12-05 21:50 | NUR ---
Pt reports nausea and pain is better and she is comfortable with discharge plan.
[2020-12-05 22:32] LABS: BASO % 0.1 % (0.0-2.0); EOS % 0.5 % (0-4.0); GRAN # 5.8 (1.4-6.5); GRAN % 69.7 % (42.2-75.2); LYMPH # 1.8 (1.2-3.4); LYMPH % 21.3 % (20.0-51.0); MEAN CELL VOLUME 85 fl (80.0-100.0); MEAN CORPUSCULAR HGB CONC 32 g/dl (33.0-37.0); MONO # 0.7 (0.1-0.6); MONO % 7.9 % (1.7-9.3); PLATELET COUNT 252 K/mm3 (130-400); RED BLOOD COUNT 3.35 M/mm3 (4.10-5.30); REDCELL DISTRIBUTION WIDTH-CV 13.4 % (11.5-14.5)
[2020-12-05 22:33] LABS: HEMATOCRIT 28.5 % (37.0-47.0); MEAN CORPUSCULAR HEMOGLOBIN 27 pg (27.0-31.0)
[2020-12-05 22:42] LABS: ALBUMIN 3.1 gm/dL (3.5-5.0); BILIRUBIN,TOTAL 0.4 mg/dL (0.0-1.0); CALCIUM 8.5 mg/dL (8.4-10.2); CREATININE, serum 0.58 (0.52-1.25); POTASSIUM 3.8 mmol/L (3.4-5.0)
--- NOTE | 2020-12-05 23:20 | NUR ---
Pt had gotten self up to bathroom. Once back in bed, FHR audible in 100s but sounds like an arrhythmia. Pt repositioned from side to side. Pulse ox on, maternal HR in 80s and 90s. FHR tracing then up to 160s and down to 100s quickly and doesn't sound consistent with decelerations. Charge nurse Darrick at bedside, agrees FHR sounds like arrhythmia. Dr. Painter notified. IV to saline lock after second bag infused per Dr. Elaine orders.
[2020-12-06] VITALS (19 sets, daily range): BP systolic 80–128; BP diastolic 50–86; PULSE 78–139
[2020-12-06 00:13] LABS: TRICYCLIC ANTIDEPRESS URINE NEGATIVE
--- NOTE | 2020-12-06 00:15 | NUR ---
BP 80/52 - Pt resting comfortably on right side, bp cuff on left arm. Pt denies feeling light headed, dizzy, or nauseous.
--- NOTE | 2020-12-06 05:10 | NUR ---
Prolonged variable decelerations down to 70 bpm. Upon entering room patient had turned self to left side and FHR was trending back up to baseline.
--- NOTE | 2020-12-06 07:05 | NUR ---
0705- RN at [facility]. EFM and TOCO adjusted. Pt state she is having intermittent lower abd pain, points to bilateral lower abd on sides. Pt states they feel like contractions. Pt does not appear to be in distress. Abd soft upon palpation. Will continue to monitor.
--- NOTE | 2020-12-06 08:30 | NUR ---
0830- Dr Yadav at nurses station. Reviews FHR strip, discusses status. 0883- [facility] calls this RN and is on her way to unit.
--- NOTE | 2020-12-06 09:15 | NUR ---
0844- US tech at bedside. EFM and TOCO off. Maternal pulse with last BP noted to be 139. O2 sat monitor on and tracing maternal HR. Pt states she is still having mild abd pain but denies other concerns. Occational contractions noted on monitor.
--- NOTE | 2020-12-06 09:16 | NUR ---
0916- complete. [facility] [place] verbalizes to this RN that the BPP 8/8 and "baby looks good." EFM and TOCO on and tracing. Pt denies needs at this time. 0907- Dr Yadav at nurses station, updated on US report from [facility]. No new orders at this time.
--- NOTE | 2020-12-06 09:49 | NUR ---
0949- [facility] and TOCO off. Discharge plan explained. Pt verbalizes she is ready to go home. She states her sister is coming to get her and she will be going to her house. Denies needs at this time. Encouraged PT to change into street clothes. 1000- Dr Yadav and this RN at bedside. Discussed US results and discharge. Follow-up as scheduled on for OB appointment and US. Discharge paperwork given and explained. Pt denies questions. Pt waiting in room for ride to get here.
== END 2020-12-06 10:15 | disposition home or self-care (01) ==
LOC: LDRO 18:16 → LDR 23:10
PROVIDERS: ADMIT Student in an Organized Health Care Education/Training Program
DX: O21.9 Vomiting of pregnancy, unspecified (principal); O99.013 Anemia complicating pregnancy, third trimester; O26.893 Other specified pregnancy related conditions, third trimester; O99.323 Drug use complicating pregnancy, third trimester; K21.9 Gastro-esophageal reflux disease without esophagitis; F12.10 Cannabis abuse, uncomplicated; Z3A.36 36 weeks gestation of pregnancy
CPT/HCPCS: C9113; G0378; J2405; J7120

== ENCOUNTER 2020-12-14 08:26 | Inpatient (IN) | payer MEDICAID ==
[~2020-12-14] VITALS: Ht 157.5 cm; Wt 77.3 kg
[2020-12-14] VITALS (15 sets, daily range): BP systolic 102–137; BP diastolic 60–96; PULSE 66–116; TEMP 98.1–99
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
[2020-12-14 09:29] LABS: TRICYCLIC ANTIDEPRESS URINE NEGATIVE
--- NOTE | 2020-12-14 10:33 | NUR ---
[address] CHURCH CALLED
[2020-12-14 11:35] LABS: BASO % 0.2 % (0.0-2.0); EOS % 0.3 % (0-4.0); GRAN # 11.8 (1.4-6.5); GRAN % 79.3 % (42.2-75.2); HEMOGLOBIN 10.8 g/dl (12.5-16.0); LYMPH # 2.1 (1.2-3.4); LYMPH % 13.9 % (20.0-51.0); MEAN CELL VOLUME 82 fl (80.0-100.0); MEAN CORPUSCULAR HEMOGLOBIN 26 pg (27.0-31.0); MEAN CORPUSCULAR HGB CONC 32 g/dl (33.0-37.0); MEAN PLATELET VOLUME 11.9 fl (7.4-10.4); MONO # 0.9 (0.1-0.6); MONO % 5.8 % (1.7-9.3); PLATELET COUNT 317 K/mm3 (130-400); RED BLOOD COUNT 4.12 M/mm3 (4.10-5.30); REDCELL DISTRIBUTION WIDTH-CV 13.7 % (11.5-14.5)
[2020-12-14 11:37] LABS: HEMATOCRIT 33.9 % (37.0-47.0)
--- NOTE | 2020-12-14 12:09 | NUR ---
1045 PATIENT IS FEELING PRESSURE. SVE / DR CHURCH CALLED AND UPDATED TO COME FOR DELIVERY.
--- NOTE | 2020-12-14 12:11 | NUR ---
1050 IV STARTED IN LEFT HAND BY Johan HERNANDEZ RN AND LR WITH PEN G 5 MU STARTED NOW. 1100 SROM WITH LARGE AMOUNT CLEAR FLUID. 1105 DR CHURCH HERE FOR DELIVERY. PATIENT WILL PUSH WITH EACH CONTRACTIONS. TOLERATES WELL. 1109 BABY GIRL DELIVERED BY DR CHURCH. CORD CLAMPED AND CUT BY DR. CHURCH AND BABY TO MOMS CHEST. 1111 PLACENTA DELIVERED AND PITOCIN STARTED AT 333 PER PROTOCOL. FUNDUS FIRM AND BLEEDING WNL.
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
--- NOTE | 2020-12-14 16:36 | NUR ---
Val with DCF contacted social media specialist and stated that Jonh Fierro has been assigned to this case and will make contact with the hospital on 12/15/2020. Worker notified nursing and Dr Montoya of the above information.
[2020-12-15 00:01] VITALS: BP 118/68; PULSE 68; TEMP 98.9
[2020-12-15 04:00] VITALS: BP 116/69; PULSE 70; TEMP 98.5
[2020-12-15 08:17] VITALS: BP 126/90; PULSE 75; TEMP 98.4
[2020-12-15 09:04] VITALS: BP 116/82
[2020-12-15] MEDS ORDERED: IBU800 M1 PO (09:56)
[2020-12-15] MEDS ORDERED: PERCOCET 325 MG1 TA2 PO (09:56)
--- NOTE | 2020-12-15 10:15 | NUR ---
DCF here to meet with patient and FOB.
[2020-12-15 16:00] VITALS: BP 104/65; PULSE 72; TEMP 97.8
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
[2020-12-15 20:30] VITALS: BP 127/87; PULSE 82; TEMP 98.9
[2020-12-16 08:45] VITALS: BP 117/82; PULSE 77; TEMP 97.7
--- NOTE | 2020-12-16 08:45 | NUR ---
[place] for assessment. Dr. Yadav here, visits with patient. Ibuprofen 800 mg given as ordered and per request.
[2020-12-16] MEDS ORDERED: ZOLOFT 50MG50 MG PO (09:14)
--- NOTE | 2020-12-16 11:23 | NUR ---
BECKI made contact with CPS worker Jonh Fierro. . Mr. Fierro reports that he is scheduled to do a walk through of the home this afternoon (12/16) and complete an assessment. BECKI will call again receive update to safety plan for [place].
--- NOTE | 2020-12-16 13:30 | NUR ---
site worker notified patient's nurse of the home evaluation scheduled today with [facility]. Patient is going to boarder status today and we await cord blood results and continue abstinence scoring for .
[2020-12-16 17:15] VITALS: BP 114/79; PULSE 69; TEMP 97.9
--- NOTE | 2020-12-16 17:28 | NUR ---
Rests in bed, alert. Ibuprofen 800 mg given per request and as ordered.
--- NOTE | 2020-12-16 19:45 | NUR ---
PLAN OF CARE REVIEWED WITH MOM AND FOB- FOB TO GO GET PRESCRIPTIONS, MOM TO MOVE TO 219 FOR BORDER STATUS - EXPECTATIONS DISCUSSED. QUESTIONS ENCOURAGED AND ANSWERED 1999 DISCHARGE INSTRUCTIONS REVIEWED. GIFT BAG GIVEN. ID BANDS COMPARED. RN ASSISTS WITH MOVING PT. BELONGINGS TO 219
== END 2020-12-16 20:00 | disposition home or self-care (01) | DRG 807 ==
LOC: LDRO 08:26 → LDR 08:30 → LDRO 10:45 → LDR 10:46 → OB 10:46
PROVIDERS: Obstetrics & Gynecology; ADMIT Obstetrics & Gynecology
PROC: 10E0XZZ Delivery of Products of Conception, External Approach (ICD-10-PCS; principal; 2020-12-14)
DX: O99.824 Streptococcus B carrier state complicating childbirth (principal); Z37.0 Single live birth; O70.0 First degree perineal laceration during delivery; O99.345 Other mental disorders complicating the puerperium; F53.0 Postpartum depression; Z3A.37 37 weeks gestation of pregnancy; O99.02 Anemia complicating childbirth; D64.9 Anemia, unspecified; O99.324 Drug use complicating childbirth; F12.90 Cannabis use, unspecified, uncomplicated
CPT/HCPCS: J2540; J2590; J7120

== ENCOUNTER 2021-12-22 18:03 | Emergency (ER) | payer MEDICAID ==
[~2021-12-22] VITALS: Ht 157.5 cm; Wt 72.7 kg
[~2021-12-22 18:03] MED LIST changes: +ZOLOFT 50MG50 MG PO
[2021-12-22 21:06] VITALS: BP 127/68; PULSE 79; TEMP 98.7
== END 2021-12-22 19:35 | disposition home or self-care (01) ==
LOC: COL.ER 18:03
DX: R05.9 Cough, unspecified (principal)